=== PATIENT | male | born 1945 | race Caucasian/White ===

== ENCOUNTER 2018-03-24 08:06 | Outpatient (CLI) | payer MEDICARE, OTHER ==
[2018-03-24] MEDS ORDERED: Gadobenate Dimeglumine 529 MG/1 ML (20ML VIAL) ONE (12:37)
--- NOTE | 2018-03-24 14:43 | MRI ---
PROSTATE MRI WITHOUT AND WITH CONTRAST: COMPARISON: None. HISTORY: Prostate cancer. Biopsy x 2 in April of 2017 and November 2017. TECHNIQUE: Multiplanar, multisequence MR images were obtained of the prostate/pelvis without and with contrast. This examination was evaluated on a [employer] work station. FINDINGS: Mild hypertrophy of the central gland is seen consistent with BPH. In the peripheral zone of the pro state in the mid gland, there is a 1.9 cm focus of low T2 signal which likely represents the patient' s known malignancy. This does not demonstrate restricted diffusion or low signal on ADV map. A smal l amount of high T1 signal is seen in the prostate from recent biopsy. This high T1 signal is seen w ithin the left seminal vesicle as well and likely represents blood in the left seminal vesicle. Afte r administration of contrast, the lesion in the prostate does not enhance and the left seminal vesicl e does not enhance to a greater extent than the high T1 signal that is present on the precontrast exa mination. No other prostate lesions are identified. No enlarged pelvic lymph nodes are seen. No marrow signal abnormality is present. IMPRESSION: There is a lesion in the peripheral zone of the prostate that has not demonstrated restricted diffusi on or low signal on ADC map. This is, therefore, classified as a PIRADS category 2 lesion. The abno rmal signal in the seminal vesicle likely represents blood product from previous biopsy. PIRADS category 2 - low likelihood that a clinically significant cancer is present. POS: YE
== END 2018-03-24 08:07 | disposition home or self-care (01) ==
LOC: TBSIIMAG 08:06
PROVIDERS: ATTEND Radiology Radiation Oncology
DX: C61 Malignant neoplasm of prostate (principal); N42.9 Disorder of prostate, unspecified
CPT/HCPCS: 72197; 82565; A9577